=== PATIENT | male | born 1940 | race Caucasian/White ===

== ENCOUNTER 2019-11-26 09:09 | Day surgery (SDC) | payer MEDICARE, OTHER ==
[~2019-11-26] VITALS: Ht 182.9 cm; Wt 97.1 kg
[2019-11-26] VITALS (7 sets, daily range): BP systolic 131–152; BP diastolic 83–100
--- NOTE | 2019-11-26 09:58 | Short Stay Surgery H&P ---
History of Present Illness History of Present Illness Chief Complaint see attached H&P HPI Red Herndon is a 79 year old male who was admitted on for Dysphagia Plan Attestation Are the patient's medical conditions optimized for surgery? Aguilar Mendez MD Nov 26, 2019 09:58
[2019-11-26] MEDS ORDERED: fentaNYL 100 mcg/2 mL IV ONE (10:00)
[2019-11-26] MEDS ORDERED: Propofol 200mg/20ml IV ONE (10:00)
[2019-11-26] MEDS ORDERED: LR 1000ml ONE (10:00)
--- NOTE | 2019-11-26 10:02 | Anethesia Preoperative Eval ---
Anesthesia Pre-op PMH/ROS General Date of Evaluation: Nov 26, 2019 Time of Evaluation: 10:02 Anesthesiologist: Callie ASA Score: ASA 3 Mallampati Score Class I : Soft palate, uvula, fauces, pillars visible Class II: Soft palate, uvula, fauces visible Class III: Soft palate, base of uvula visible Class IV: Only hard plate visible Mallampati Classification: Class III Surgeon: Jovan Diagnosis: Dysphagia Surgical Procedure: EGD Anesthesia History: none Family History: no anesthesia problems Allergies: Coded Allergies: Dust (Verified Allergy, Intermediate, sneezing; watery eyes, 11/26/19) ARMODAFINIL (Verified Allergy, Unknown, "unknown", 11/26/19) Medications: see eMAR Patient NPO?: Yes Past Medical History Cardiovascular: Reports: HTN; Denies: CAD, [place], valve dz, arrhythmia, other Pulmonary: Denies: asthma, COPD, CONRADO, other Gastrointestinal/Genitourinary: Reports: GERD; Denies: CRI, ESRD, other Neurologic/Psychiatric: Reports: dementia; Denies: CVA, depression/anxiety, TIA, other Endocrine: Reports: hypothyroidism; Denies: DM, steroids, other HEENT: Reports: cataract (L), cataract (R); Denies: glaucoma, KOBUK (L), KOBUK (R), other Hematology/Immune: Denies: anemia, DVT, bleeding disorder, other Musculoskeletal/Integumentary: Reports: OA; Denies: RA, DJD, DDD, edema, other PMH Narrative: as above PSxH Narrative: see H&P Anesthesia Pre-op Phys. Exam Physician Exam Constitutional: NAD Neurologic: CN 2-12 intact Cardiovascular: RRR, no M/R/G Respiratory: CTA Gastrointestinal: S/NT/ND Airway Exam Mallampati Score: Class III MO: limited Neck: stiff ROM: limited Teeth: missing Dentures: no upper, no lower Anesthesia Pre-op A/P Risk Assessment & Plan Assessment: ASA 3 Plan: MAC Status Change Before Surgery: Phoenix Villa MD Nov 26, 2019 10:02
--- NOTE | 2019-11-26 10:04 | Pre-Procedure Note/Attestation ---
Pre-Procedure Note/Attestation Complete Prior to Procedure Planned Procedure: not applicable Procedure Narrative: EGD Indications for Procedure Pre-Operative Diagnosis: dysphagia Attestation I attest that I discussed the nature of the procedure; its benefits; risks and complications; and alternatives (and the risks and benefits of such alternatives ), prior to the procedure, with the patient (or the patient's legal medical field representative). I attest that, if there was a reasonable possibility of needing a blood transfusion, the patient (or the patient's legal medical field representative) was given the [facility] standardized written summary, pursuant to the [place] Blood Safety Act ([place] Health and Safety Code # 1645, as amended). I attest that I re-evaluated the patient just prior to the surgery and that there has been no change in the patient's H&P, except as documented below: Aguilar Mendez MD Nov 26, 2019 10:04
--- NOTE | 2019-11-26 10:30 | Immediate Post-Op Evaluation ---
Immediate Post-Op Evalulation Immediate Post-Op Evalulation Procedure: EGD with Bx Date of Evaluation: Nov 26, 2019 Time of Evaluation: 10:29 IV Fluids: 500 Blood Products: none Estimated Blood Loss: none Urinary Output: none Blood Pressure Systolic: 131 Blood Pressure Diastolic: 84 Pulse Rate: 66 Respiratory Rate: 20 O2 Sat by Pulse Oximetry: 99 Temperature (Fahrenheit): 97.4 Pain Score (1-10): 1 Nausea: No Vomiting: No Complications none Patient Status: reacts, patent, none Hydration Status: adequate Phoenix Ledesma MD Nov 26, 2019 10:30
[2019-11-26] MEDS ORDERED: AMANTADINE100 M2 ORAL (10:45)
[2019-11-26] MEDS ORDERED: ASPIR 8181 MG ORAL (10:47)
[2019-11-26] MEDS ORDERED: ATORVASTATIN CA20 MG ORAL (10:48)
[2019-11-26] MEDS ORDERED: DONEPEZIL HCL5 MG ORAL (10:49)
--- NOTE | 2019-11-26 11:16 | 48 Hour Post Anesthesia Eval ---
Post Anesthesia Evaluation Procedure: EGD with Bx Date of Evaluation: Nov 26, 2019 Time of Evaluation: 11:15 Blood Pressure Systolic: 152 0: 78 Pulse Rate: 74 Respiratory Rate: 20 Temperature (Fahrenheit): 97.6 O2 Sat by Pulse Oximetry: 98 Airway: patent Nausea: No Vomiting: No Pain Intensity: 1 Hydration Status: adequate Cardiopulmonary Status: stable Mental Status/LOC: patient returned to baseline Follow-up Care/Observations: n/a Post-Anesthesia Complications: none Follow-up care needed: ready to discharge Phoenix Ledesma MD Nov 26, 2019 11:16
[2019-11-26] MEDS ORDERED: SINEMET 25-1001 EAC1 ORAL (11:18)
[2019-11-26] MEDS ORDERED: CARDIZEM30 M1 PO (11:20)
[2019-11-26] MEDS ORDERED: DIVALPROEX SOD125 MG PO (11:25)
[2019-11-26] MEDS ORDERED: FLUOXETINE HCL20 MG ORAL (11:27)
[2019-11-26] MEDS ORDERED: SYNTHROID100 MCG ORAL (11:29)
[2019-11-26] MEDS ORDERED: LISINOPRIL20 MG ORAL (11:30)
[2019-11-26] MEDS ORDERED: ATIVAN1 MG ORAL (11:31)
[2019-11-26] MEDS ORDERED: PANTOPRAZOLE SO40 MG ORAL (11:33)
[2019-11-26] MEDS ORDERED: FLOMAX0.4 MG ORAL (11:34)
[2019-11-26] MEDS ORDERED: FLONASE ALLERG9.9 ML NS (11:36)
[2019-11-26] MEDS ORDERED: NAMENDA10 MG ORAL (11:36)
[2019-11-26] MEDS ORDERED: CHOLECALCIFEROL1 G1 PO (11:39)
[2019-11-26] MEDS ORDERED: DOCUSATE SODIU250 MG ORAL (11:52)
[2019-11-26] MEDS ORDERED: BUSPIRONE HCL7.5 MG ORAL (11:54)
--- NOTE | 2019-11-26 16:30 | Operative Note - Dictated ---
DATE OF OPERATION: 11/26/2019 PROCEDURE: Upper gastrointestinal endoscopy with biopsy. SURGEON: Aguilar Mendez M.D. ANESTHESIA: Please see the separate anesthesiologist notes for details. PRE-ENDOSCOPIC DIAGNOSES: 1. Dysphagia. 2. Vitamin B12 deficiency. POST-ENDOSCOPIC DIAGNOSIS: Normal upper gastrointestinal examination, status post random biopsies of various locations as outlined below. PROCEDURE IN DETAIL: The procedure its risks, indications, alternatives, and possible complications including but not limited to bleeding, infection, perforation, , and anesthesia complications were explained to the patient and informed consent was obtained. The patient was then sedated in the left lateral decubitus position and a diagnostic upper endoscope was introduced through oropharynx and advanced to the duodenum without difficulty. The endoscope was then gradually withdrawn and mucosa examined carefully. Examination of the upper gastrointestinal mucosa revealed no significant abnormalities. The biopsies of the duodenum, fundus, lower esophagus, and mid esophagus were sent to pathology for review. The endoscope was removed. The patient was sent to Recovery in good condition. COMPLICATIONS: None. ASSESSMENT: There were no abnormalities on this examination to explain the patient's symptoms of dysphagia. The symptoms may be based on a functional disorder such as esophageal dysmotility. The patient can benefit from an esophageal motility study as an outpatient. Biopsies will be evaluated to rule out eosinophilic esophagitis or other pathologies related to his presenting complaint. RECOMMENDATIONS: 1. Resume oral diet. 2. Resume Plavix and aspirin. 3. Outpatient followup. Aguilar Mendez M.D. DR: DIMPLE JOB#: [id number] CC:
--- NOTE | 2019-11-27 18:27 | Endoscopy Procedure Note ---
Endoscopy Procedure Note General Indication for Procedure: dysphagia Procedures Performed: EGD Operative Findings/Diagnosis: nl Specimen: yes Anesthesia Anesthesiologist: see report Anesthesia: MAC Inserted Devices Implant(s) used?: No Quality Was there any complications?: No GI Core Measures 50 yrs or older w/o bx or poly: Not Applicable 10yrs. F/U recommended: Not Applicable Aguilar Mendez MD Nov 27, 2019 18:27
--- NOTE | 2019-11-27 18:27 | Brief Operative Note ---
Immediate Post Operative Note Operative Note Chief Complaint: dysphagia Pre-op Diagnosis: dysphagia Procedure: esophagogastroduodenoscopy bx Surgeon: lizz Anesthesiologist: see report Specimen: yes Complications: none Fluids: recorded Implant(s) used?: No Aguilar Mendez MD Nov 27, 2019 18:27
== END 2019-11-26 11:50 | disposition home or self-care (01) ==
LOC: GAS 09:09
DX: R13.10 Dysphagia, unspecified (principal); E53.8 Deficiency of other specified B group vitamins; I10 Essential (primary) hypertension; K21.9 Gastro-esophageal reflux disease without esophagitis; F03.90 Unspecified dementia, unspecified severity, without behavioral disturbance, psychotic disturbance, mood disturbance, and anxiety; E03.9 Hypothyroidism, unspecified; M19.90 Unspecified osteoarthritis, unspecified site
CPT/HCPCS: 43239; J2704; J3010; J7120; 94003; 94150